=== PATIENT | male | born 1960 ===

== ENCOUNTER → 2023-07-05 15:55 | Outpatient (CLI) | payer OTHER, SELFPAY ==
--- NOTE | 2023-07-05 | DI.MRI.S_ITS ---
PROCEDURE: MRFOOT LT WO CON INDICATIONS: LEFT FOOT PAIN, PREVIOUS INJURY TECHNIQUE: Noncontrast sagittal T1 spin echo and T2 fast spin echo with fat saturation, long-axis T1 spin echo and T2 fast spin echo with fat saturation, short-axis T1 spin echo and T2 fast spin echo with fat saturation through the forefoot. COMPARISON: None. FINDINGS: Image quality: Excellent. Bones and joints: There is marrow edema involving 3rd and 4th metatarsal shafts with linear hypointense signal involving 4th metatarsal base concerning for stress fractures in these areas. No other fracture or dislocation is seen. Osteoarthritic changes are noted throughout midfoot and forefoot joints. Soft tissues: There is soft tissue edema and swelling surrounding proximal shaft of 3rd metatarsal bone and surrounding 4th metatarsal base. The visualized plantar foot muscles demonstrate normal signal and bulk. Visualized flexor and extensor tendons appear intact, without tenosynovitis. The distal insertions of the peroneus brevis and longus tendons appear intact. The principal Lisfranc ligament appears intact. No soft tissue ganglion cysts or bursal fluid collections. IMPRESSION: 1. Finding is concerning for stress fracture involving 4th and possibly 3rd metatarsal base and proximal shaft with surrounding soft tissue edema and marrow edema. 2. No other fracture or dislocation. Osteoarthritic changes throughout midfoot and forefoot. 3. Extensor and flexor tendons are grossly intact. Lisfranc ligament is intact. Dictated by: Gumaro Coles M.D. on 07/05/2023 at 17:14 Approved by: Gumaro Coles M.D. on 07/05/2023 at 17:18
== END ==
PROVIDERS: Referring Provider Podiatrist; Visit Provider Podiatrist
DX: S90.32XA Contusion of left foot, initial encounter (principal); M79.672 Pain in left foot
CPT/HCPCS: 73718

== ENCOUNTER 2024-03-31 09:19 | Emergency (ER) | payer OTHER, SELFPAY ==
[2024-03-31] VITALS (8 sets, daily range): BP systolic 153–180; BP diastolic 72–86; PULSE 46–56; RESP 14–18; TEMP 36.7; O2SAT 96–100; BMI 41.2
--- NOTE | 2024-03-31 10:22 | ED.BACK ---
HPI - Back Pain/Injury General Chief Complaint: Back Pain/Injury Stated Complaint: Back Pain Time Seen by Provider: 03/31/24 09:30 Source: patient and EMS History of Present Illness HPI Narrative: Patient 64-year-old male history of hyperlipidemia acid reflux chronic back pain presenting today with left lower lumbar pain. He reports that he had increased FLAIR 2 days ago took some Tylenol stretch it out got better yesterday he was able to get up and go to work. However this morning in the chair he was unable to move he took Tylenol prior to arrival and now seems to be a bit better. He has no numbness or tingling down his legs no radiation to his groin. No abdominal pain no nausea or vomiting. This feels like an exacerbation of his chronic back pain. He has no history of kidney stones he has not noted any sort of blood in his urine, not had any fever Related Data Previous Rx's Medication Instructions Recorded methocarbamol 750 mg tablet 750 mg PO Q12HR PRN spasm #14 tabs 03/31/24 Allergies Allergy/AdvReac Type Severity Reaction Status Date / Time No Known Drug Allergies Allergy Verified 03/31/24 09:25 Patient History Social History Smoking Status: Never smoker Smoking Status: Never smoker alcohol intake frequency: 0-2 drinks per day Substance Use Type: does not use Exam Initial Vital Signs Initial Vital Signs: Vital Signs Pulse Rate 56 L 03/31/24 09:19 Blood Pressure 180/79 H 03/31/24 09:19 Pulse Oximetry 99 03/31/24 09:19 GENERAL: Alert 64-year-old male and in no acute distress. HEENT: Head atraumatic,EOMI, pupils reactive, face symmetric, moist mucous membranes CARDIOVASCULAR: Regular rate and rhythm without murmurs, rubs or gallops. RESPIRATORY: Breath sounds equal bilaterally, no wheezes rales or rhonchi. ABDOMEN: Soft, nontender. Normoactive bowel sounds all 4 quadrants. No guarding or rebound. BACK: No midline vertebral tenderness he does have some left paraspinal muscle tenderness reproducible with touch : No CVA tenderness EXTREMITIES: Normal range of motion, no clubbing or edema. Neurovascularly intact NEUROLOGICAL: Alert and oriented x4. SKIN: Warm, dry, no laceration, no petechiae, no rashes or lesions. Course Orders Ordered: Discontinued Medications Ketorolac Tromethamine (Ketorolac 30 Mg/Ml Vial) 30 mg IM NOW ONE Stop: 03/31/24 10:35 Last Admin: 03/31/24 10:42 Dose: 30 mg Documented By: PARVIN Vital Signs Vital signs: Vital Signs - 8 hr 03/31/24 10:30 03/31/24 10:30 03/31/24 11:03 Pulse Rate 48 L 53 L Blood Pressure 172/86 H Pulse Oximetry 97 98 03/31/24 11:04 03/31/24 11:04 Pulse Rate 53 L Blood Pressure 167/74 H Pulse Oximetry 100 MDM - Back Pain/Injury Lab Data Labs: Urine Dip Bedside Urine Glucose Negative Bedside Urine Bilirubin - Negative Bedside Urine Ketone - Negative Urine Specific [place] 1.020 Bedside Urine Occult Blood - Negative Bedside Urine pH 6.5 Bedside Urine Protein - Negative Bedside Urine Urobilinogen - Negative Bedside Urine Nitrite - Negative Bedside Urine Leukocytes - Negative Esterase MDM Narrative Medical decision making narrative: Patient is 64-year-old male who has chronic back pain presents today with worsening back pain. He had an exacerbation of pain 2 days ago was better yesterday and today could not get out of the chair. It is left lower lumbar area painful to touch and reproducible. He is starting to feel better after Tylenol that he took prior to EMS . I suspect that this is musculoskeletal. I have low suspicion for dissection or kidney stone. He has given a dose of Toradol here in the ED he is able to get up and go to restroom without any significant difficulty. He is anything significantly stronger for pain but is open to a muscle relaxer. Discharge Plan Departure Patient Disposition: Home Clinical Impression: Acute exacerbation of chronic low back pain Instructions: DI for Low Back Pain Activity Restrictions/Additional Instructions: *You have been diagnosed with acute on chronic back pain *What to do: Increase activity as tolerated heat and ice as needed *Continue to take medications as directed Tylenol 1000 mg every 6 hours if needed for [id number] pain Motrin 600 mg every 6 hours for kejs-[id number] pain Methocarbamol 750-1500 mg every 12 hours for muscle spasm his can cause drowsiness not take while driving or operating heavy machinery *Follow up with your primary care provider in 2-3 days or call [phone] *Return to ER if you should have increasing back pain nausea vomiting weakness change in bowel or bladder habits [or] any new, worsening or concerning symptoms Prescriptions: New methocarbamol 750 mg tablet 750 mg PO Q12HR PRN (Reason: spasm) Qty: 14 0RF Referrals: ProviderMaggie [Primary Care Provider] - Stand Alone Forms: Patient Portal/API
[2024-03-31] MEDS: KETOROLAC 30 MG/ML VIAL IM (10:42)
== END 2024-03-31 11:25 | disposition home or self-care (01) ==
PROVIDERS: Emergency Provider Emergency Medicine
DX: M54.50 Low back pain, unspecified (principal)
CPT/HCPCS: 81003; 96372; 99283; J1885

== ENCOUNTER 2024-08-07 00:40 | Emergency (ER) | payer OTHER, SELFPAY ==
[2024-08-07] VITALS (7 sets, daily range): BP systolic 139–142; BP diastolic 67–80; PULSE 60–91; RESP 18–20; TEMP 37.2; O2SAT 94–97; BMI 40.8
--- NOTE | 2024-08-07 00:52 | ED.GENADULT ---
HPI - General Adult General Chief complaint: Abdominal Pain Stated complaint: blockage Time Seen by Provider: 08/07/24 00:42 Source: patient Mode of arrival: Ambulatory Limitations: no limitations History of Present Illness HPI narrative: Patient is a 64-year-old male. Has had a appendectomy. Has also had a bowel obstruction. This was actually several years ago. He states yesterday he started to have some discomfort in his abdomen that felt like he was prior bowel obstruction. It has persisted and worsened since then. No vomiting. He has had loose stools today. No problems urinating. The last time that he had a bowel obstruction it did not require surgical intervention. Related Data Previous Rx's Medication Instructions Recorded methocarbamol 750 mg tablet 750 mg PO Q12HR PRN spasm #14 tabs 03/31/24 Allergies Allergy/AdvReac Type Severity Reaction Status Date / Time No Known Drug Allergies Allergy Verified 03/31/24 09:25 Review of Systems Review of Systems Narrative: See HPI Patient History Social History Smoking Status: Never smoker Smoking Status: Never smoker alcohol intake frequency: 0-2 drinks per day Substance Use Type: does not use Exam Initial Vital Signs Initial Vital Signs: Vital Signs Temperature 99.0 F 08/07/24 00:50 Pulse Rate 91 H 08/07/24 00:50 Respiratory Rate 20 08/07/24 00:50 Blood Pressure 142/77 H 08/07/24 00:50 Pulse Oximetry 95 08/07/24 00:50 Oxygen Delivery Method Room Air 08/07/24 00:50 Const General: cooperative, comfortable and No ill appearing Resp Effort & Inspection: normal respiratory effort Cardio Rate: regular rate GI Inspection: normal to inspection and distended Palpation: soft, No firm, No guarding and No tender Skin General: no rashes or lesions noted Neuro General: patient alert, patient awake and moves all extremities Extrem General: normal to inspection and capillary refill normal Course Orders Ordered: ED Orders 08/07/24 00:50 Complete Blood Count AUTO DIFF Stat Comprehensive Metabolic Panel Stat Lactate (Lactic Acid) Stat Lipase Stat 08/07/24 00:53 CT abdomen pelvis w con Stat Vital Signs Vital signs: Vital Signs - 8 hr 08/07/24 00:50 08/07/24 00:59 08/07/24 00:59 Temperature 99.0 F Pulse Rate 91 H 86 Respiratory Rate 20 Blood Pressure 142/77 H 139/73 Pulse Oximetry 95 94 Oxygen Delivery Method Room Air 08/07/24 01:00 08/07/24 01:01 08/07/24 01:01 Temperature Pulse Rate 90 87 Respiratory Rate 19 Blood Pressure 139/80 Pulse Oximetry 94 94 Oxygen Delivery Method Room Air Room Air Medical Decision Making Lab Data Lab results reviewed: Yes I reviewed the patient's lab results. 08/07/24 00:50 08/07/24 00:50 Labs: Lab Results 08/07/24 Range/Units 00:50 WBC 9.6 (4.5-11.0) X10^3/uL RBC 5.04 (4.5-5.9) X10^6/uL Hgb 15.5 (13.5-17.5) g/dL Hct 45.0 (41-53) % MCV 89.3 (80-100) fL MCH 30.8 (26-34) PG MCHC 34.5 (30-36) % RDW 13.3 (11.6-14.8) % Plt Count 151 (150-400) X10^3/uL Neut % (Auto) 77.8 H (50-75) % Lymph % (Auto) 13.8 L (25-40) % [place] % (Auto) 7.5 (3-14) % Eos % (Auto) 0.6 L (2-4) % Baso % (Auto) 0.3 (0-2) % Neut # (Auto) 7400 H (4650-6447) /uL Lymph # (Auto) 1300 (7123-7614) /uL [place] # (Auto) 700 (0-900) /uL Eos # (Auto) 100 (0-450) /uL Baso # (Auto) 0 (0-100) /uL Sodium 136 L (137-145) mmol/L Potassium 3.6 (3.4-5.1) mmol/L Chloride 108 H (98-107) mmol/L Carbon Dioxide 21 L (22-32) mmol/L BUN 12 (9-20) mg/dL Creatinine 0.76 (0.66-1.25) mg/dL Estimated GFR > 60 (>60) mL/min BUN/Creatinine Ratio 15.8 (6-22) Glucose 111 H (80-110) mg/dL Lactate 0.7 (0.7-2.1) mmol/L Calcium 9.0 (8.4-10.2) mg/dL Total Bilirubin 2.0 H (0.2-1.3) mg/dL AST 28 (17-59) IU/L ALT 27 (<50) IU/L Alkaline Phosphatase 84 (38-126) U/L Total Protein 6.9 (6.3-8.2) g/dL Albumin 3.9 (3.5-5.0) g/dL Globulin 3.0 (1.7-4.1) g/dL Albumin/Globulin Ratio 1.3 (1.0-2.8) Lipase 25 (23-300) U/L Imaging Data CT scan - abdomen/pelvis: Radiologist's Impression: PROCEDURE: CT ABDOMEN PELVIS W CON INDICATIONS: Upper abdominal pain, history of SBO and appendectomy TECHNIQUE: After the administration of intravenous contrast, axial sections acquired from the lung bases to the pubic symphysis. Coronal and sagittal reformats were performed. For radiation dose reduction, the following was used: automated exposure control, adjustment of mA and/or kV according to patient size. COMPARISON: None. FINDINGS: Image quality: Diagnostic. Lower Chest: No significant findings. ABDOMEN: Liver: No solid mass. Gallbladder: No radiopaque gallstones or wall thickening. Biliary ducts: No biliary dilation. Pancreas: No ductal dilation. Spleen: Size is within normal limits. Adrenal Glands: No adrenal nodules. Kidneys and Ureters: No hydronephrosis. No solid mass. No complex renal cystic lesion which requires follow up. Simple appearing renal cysts. Stomach and Bowel: Normal colonic caliber, without significant wall thickening. Few dilated loops of small bowel the mid abdomen with air-fluid levels measuring up to 4.1 cm. No transition point is seen. The small bowel transitions to normal caliber. There is significant long segment wall thickening of the mid abdominal small bowel. Peritoneum: Small volume free intraperitoneal fluid. No free air. Ventral Wall: No significant ventral hernia. Abdominal Nodes: No retroperitoneal or mesenteric adenopathy by size criteria. Vessels: Aorta and inferior vena cava are normal in size. PELVIS: Pelvic Organs: Unremarkable. Bladder: No bladder wall thickening, accounting for underdistention. Pelvic Nodes: No enlarged lymph nodes. Miscellaneous: No inguinal hernias are seen. Bones: No aggressive osseous abnormality. Multilevel degenerative changes of the spine. IMPRESSION: Few dilated loops of small bowel within the mid abdomen with air-fluid levels measuring up to 4.1 cm. No transition point is seen and just distal to the dilated small bowel is a long segment of significant small bowel wall thickening. Findings are concerning for enteritis. Developing bowel obstruction is felt to be less likely. Small volume free fluid is likely reactive. MDM Narrative Medical decision making narrative: Patient does have a relatively benign abdominal exam. Vital signs are unremarkable labs are relatively unremarkable as well. CT scan was ordered given his stated history of a small-bowel obstruction and him stating this feels similar to that. Subsequent CT scan does not show signs of a bowel obstruction. More consistent with enteritis and this does fit his presentation as he states he was had multiple episodes of diarrhea today. No recent antibiotics. His tolerating oral intake. We will hold on any antibiotics for now. No indication for admission to the hospital or emergent surgical consultation. Will discharge home with return precautions and follow-up instructions. He expressed understanding and agreement. Discharge Plan Departure Patient Disposition: Home Clinical Impression: Enteritis Instructions: Diarrhea, DI for Enteritis Activity Restrictions/Additional Instructions: Continue to take all of your medications as directed. Be sure that you were increasing your fluid intake. Recommend a bland diet for the next couple days that you can advance as tolerated. Return to the emergency department for new or worsening symptoms. Prescriptions: No Action methocarbamol 750 mg tablet 750 mg PO Q12HR PRN (Reason: spasm) Qty: 14 0RF Referrals: ProviderMaggie [Primary Care Provider] - Stand Alone Forms: Patient Portal/API
[2024-08-07 01:03] LABS: Add Manual Diff / Slide Review NO; Basophils Absolute Auto 0 /uL (0-100); Basophils Percent Auto 0.3 % (0-2); Eosinophils Absolute Auto 100 /uL (0-450); Eosinophils Percent Auto 0.6 % (2-4); Hemoglobin 15.5 g/dL (13.5-17.5); Lymphocytes Absolute Auto 1300 /uL (1100-4500); Lymphocytes Percent Auto 13.8 % (25-40); Mean Corpuscular HGB Conc 34.5 % (30-36); Mean Corpuscular Hemoglobin 30.8 PG (26-34); Mean Corpuscular Volume 89.3 fL (80-100); Monocytes Absolute Auto 700 /uL (0-900); Monocytes Percent Auto 7.5 % (3-14); Neutrophils Absolute Auto 7400 /uL (1500-7000); Neutrophils Percent Auto 77.8 % (50-75); Platelet Count 151 X10^3/uL (150-400); Red Blood Cell Count 5.04 X10^6/uL (4.5-5.9); Red Cell Distribution Width 13.3 % (11.6-14.8); White Blood Cell Count 9.6 X10^3/uL (4.5-11.0)
[2024-08-07 01:14] LABS: Lactate (Lactic Acid) 0.7 mmol/L (0.7-2.1); Lipase 25 U/L (23-300)
[2024-08-07 01:15] LABS: Alanine Aminotransferase 27 IU/L (<50); Albumin 3.9 g/dL (3.5-5.0); Albumin Globulin Ratio 1.3 (1.0-2.8); Alkaline Phosphatase 84 U/L (38-126); Aspartate Aminotransferase 28 IU/L (17-59); BUN Creatinine Ratio 15.8 (6-22); Blood Urea Nitrogen 12 mg/dL (9-20); Carbon Dioxide 21 mmol/L (22-32); Chloride 108 mmol/L (98-107); Estimated Glomerular Filt Rate > 60 mL/min (>60); Glucose 111 mg/dL (80-110); HEMOLYSIS < 15 (0-50); Potassium 3.6 mmol/L (3.4-5.1); Sodium 136 mmol/L (137-145); Total Protein 6.9 g/dL (6.3-8.2)
== END 2024-08-07 02:08 | disposition home or self-care (01) ==
PROVIDERS: Emergency Provider Emergency Medicine
DX: K52.9 Noninfective gastroenteritis and colitis, unspecified (principal); Z90.49 Acquired absence of other specified parts of digestive tract
CPT/HCPCS: 36415; 74177; 80053; 83605; 83690; 85025; 99283; 99284; Q9967

== ENCOUNTER 2024-08-09 10:09 | Inpatient (IN) | payer OTHER, SELFPAY ==
[2024-08-09] VITALS (12 sets, daily range): BP systolic 129–157; BP diastolic 61–93; PULSE 57–89; RESP 15–24; TEMP 36.4–36.8; O2SAT 95–99; BMI 40.7; BMI 39.1
--- NOTE | 2024-08-09 10:16 | DI.RAD.S_ITS ---
PROCEDURE: XR ACUTE ABDOMEN SERIES INDICATIONS: abd pain,constipation TECHNIQUE: One view chest and two views of the abdomen were acquired. COMPARISON: [facility], CT, CT ABDOMEN PELVIS W CON, 08/07/2024, 1:23. FINDINGS: Persistently dilated small bowel with air-fluid levels up to 4.5 cm in the central mid abdomen. Submucosal edema of the dilated small bowel loops. Large bowel loops are decompressed. Partial ankylosis of the sacroiliac joints. Visualized chest within normal limits. IMPRESSION: Persistent small bowel obstruction. Consider the possibility of underlying inflammatory disease such as Crohn's disease. Dictated by: Fer Desai M.D. on 08/09/2024 at 10:43 Approved by: Fer Desai M.D. on 08/09/2024 at 10:53
--- NOTE | 2024-08-09 10:21 | ED.ABDPAIN ---
HPI - Abdominal Pain General Chief Complaint: Abdominal Pain Stated Complaint: constipated Time Seen by Provider: 08/09/24 10:21 Source: patient Mode of arrival: Ambulatory History of Present Illness HPI narrative: 64-year-old male with history of remote appendectomy, subsequent single episode bowel obstruction treated medically, with recent days complaint of abdominal distention and discomfort, seen here 2 days ago 08/07/2024 and recalls having a CT scan, does not know the results but he was sent home, no specific medication advised, still feels like he is having discomfort, not necessarily further distended, he is passing some liquid stool, last liquid stool 8:00 a.m. this morning, did not feel better or worse after the stooling. No nausea or vomiting. No fevers or chills. Denies painful urination or frequency of urination. No flank pain. No chest pain or shortness of breath symptoms. Related Data Home Medications Medication Instructions Recorded Confirmed omeprazole 20 mg capsule,delayed 20 mg PO DAILY 08/09/24 08/09/24 release paroxetine HCl 20 mg tablet 20 mg PO DAILY 08/09/24 08/09/24 simvastatin 20 mg tablet 20 mg PO ONCE PM 08/09/24 08/09/24 Allergies Allergy/AdvReac Type Severity Reaction Status Date / Time No Known Drug Allergies Allergy Verified 08/09/24 10:17 Review of Systems Review of Systems Narrative: See HPI Patient History Social History household members: spouse Smoking Status: Never smoker alcohol intake: current Smoking Status: Never smoker alcohol intake frequency: holidays/special occasions only Substance Use Type: does not use Exam Narrative Exam Narrative: GENERAL: Well-developed patient, in mild distress. HEAD: Atraumatic. Normocephalic. EYES: Pupils equal round and reactive. Extraocular motions intact. No scleral icterus. No injection or drainage. ENT: Nose without bleeding, purulent drainage. Throat without erythema, tonsillar hypertrophy or exudate. Airway patent. NECK: Trachea midline. Non tender CARDIOVASCULAR: Regular rate and rhythm without murmurs, gallops, or rubs. RESPIRATORY: Clear to auscultation. Breath sounds equal bilaterally. No wheezes, rales, or rhonchi. GASTROINTESTINAL: Obese pannus, abdomen soft, non-tender, nondistended. No obvious periumbilical or other ventral hernias. EXTREMITIES: No edema or joint tenderness. BACK: Nontender without deformity or crepitance. No flank tenderness. NEURO: AOx3. Motor functions grossly nonfocal SKIN: No rash or erythema of visible areas Initial Vital Signs Initial Vital Signs: Vital Signs Temperature 98.3 F 08/09/24 10:10 Pulse Rate 89 08/09/24 10:10 Respiratory Rate 15 08/09/24 10:10 Blood Pressure 137/75 08/09/24 10:10 Pulse Oximetry 97 08/09/24 10:10 Oxygen Delivery Method Room Air 08/09/24 10:10 Course Orders Ordered: ED Orders 08/09/24 12:10 Complete Blood Count AUTO DIFF Stat Comprehensive Metabolic Panel Stat 08/09/24 12:55 CT abdomen pelvis w con Stat 08/09/24 13:10 Ictotest Urine Stat Urine Culture Stat Urine Microscopic Stat Heparin Sodium (Porcine) (Heparin 5,000 Unit/Ml Vial) 5,000 unit SUBCUT BID [facility] Last Admin: 08/09/24 20:29 Dose: 5,000 unit Documented By: SR Hydromorphone HCl (Hydromorphone 0.5 Mg Inj) 0.5 mg IV Q2H PRN PRN Reason: Pain, Severe (7-10) Dextrose/Sodium Chloride (Dextrose 5%-0.9% Ns) 1,000 mls @ 100 mls/hr IV CONT [facility] Last Admin: 08/09/24 16:45 Dose: 100 mls/hr Documented By: JR Lorazepam (Lorazepam 2 Mg/Ml Inj) 0.5 mg IV Q6HR PRN PRN Reason: Anxiety Naloxone HCl (Naloxone 0.4 Mg/Ml Vial) 0.2 mg IV Q2MIN PRN PRN Reason: Opiate Reversal Ondansetron HCl (Ondansetron 4 Mg/2 Ml Inj) 4 mg IV Q8HR PRN PRN Reason: Nausea And Vomiting Vital Signs Vital signs: Vital Signs - 8 hr 08/09/24 13:21 08/09/24 13:21 08/09/24 13:30 Pulse Rate 60 Respiratory Rate 23 Blood Pressure 152/93 H 145/88 H Pulse Oximetry 99 08/09/24 13:30 08/09/24 14:00 08/09/24 14:00 Pulse Rate 68 67 Respiratory Rate 24 23 Blood Pressure 149/73 H Pulse Oximetry 98 97 08/09/24 14:30 08/09/24 14:30 08/09/24 15:00 Pulse Rate 66 Respiratory Rate 23 Blood Pressure 141/76 H 157/75 H Pulse Oximetry 98 08/09/24 15:00 Pulse Rate 62 Respiratory Rate 24 Blood Pressure Pulse Oximetry 98 MDM - Abdominal Pain Lab Data Attestation: I reviewed the patient's lab results. Lab results narrative: Normal white blood cell count, hemoglobin, platelets. CMP shows T bili 2.3, was elevated 2.0 2 days ago, other LFTs unremarkable, her electrolytes unremarkable, GFR normal, glucose normal. 08/09/24 12:10 08/09/24 12:10 Labs: Lab Results 08/09/24 08/09/24 Range/Units 12:10 13:10 WBC 9.0 (4.5-11.0) X10^3/uL RBC 5.01 (4.5-5.9) X10^6/uL Hgb 15.5 (13.5-17.5) g/dL Hct 44.4 (41-53) % MCV 88.6 (80-100) fL MCH 30.9 (26-34) PG MCHC 34.9 (30-36) % RDW 12.9 (11.6-14.8) % Plt Count 179 (150-400) X10^3/uL Neut % (Auto) 73.9 (50-75) % Lymph % (Auto) 17.7 L (25-40) % [place] % (Auto) 7.7 (3-14) % Eos % (Auto) 0.4 L (2-4) % Baso % (Auto) 0.3 (0-2) % Neut # (Auto) 6600 (0900-0807) /uL Lymph # (Auto) 1600 (8343-6594) /uL [place] # (Auto) 700 (0-900) /uL Eos # (Auto) 0 (0-450) /uL Baso # (Auto) 0 (0-100) /uL Sodium 139 (137-145) mmol/L Potassium 3.8 (3.4-5.1) mmol/L Chloride 107 (98-107) mmol/L Carbon Dioxide 24 (22-32) mmol/L BUN 15 (9-20) mg/dL Creatinine 0.85 (0.66-1.25) mg/dL Estimated GFR > 60 (>60) mL/min BUN/Creatinine Ratio 17.6 (6-22) Glucose 102 (80-110) mg/dL Calcium 9.1 (8.4-10.2) mg/dL Total Bilirubin 2.3 H (0.2-1.3) mg/dL AST 22 (17-59) IU/L ALT 21 (<50) IU/L Alkaline Phosphatase 74 (38-126) U/L Total Protein 7.0 (6.3-8.2) g/dL Albumin 4.1 (3.5-5.0) g/dL Globulin 2.9 (1.7-4.1) g/dL Albumin/Globulin Ratio 1.4 (1.0-2.8) Ur Bilirubin Confirm Positive H (Negative) Urine RBC None seen (0-5/HPF) Urine WBC 0-1/hpf (0-5/HPF) Ur Squamous Epith Cells None seen (0-5/HPF) Urine Bacteria Occasional (0-1) (None) Urine Mucus 1+ H (Negative) Ur Culture Indicated? Specimen cultured Vol Urine Centrifuged 10ml (spun) Point of care testing: Urine Dip Bedside Urine Glucose Negative Bedside Urine Bilirubin + 1 Bedside Urine Ketone +/- 5 Urine Specific [place] 1.025 Bedside Urine Occult Blood - Negative Bedside Urine pH 6.0 Bedside Urine Protein + 30 Bedside Urine Urobilinogen - Negative Bedside Urine Nitrite - Negative Bedside Urine Leukocytes +/- 15 Esterase Imaging Data Abdominal x-ray: Radiologist's Impression: [address] [address] XRay Report Signed Patient: Carlos Burk MR#: [id number] : 1960 Acct:[id number] Age/Sex: 64 / M Date of Service: 08/09/24 Loc: ED Accession Number: [id number] Procedure: XR acute abdomen series Ordering Provider: Alonzo Arroyo MD PROCEDURE: XR ACUTE ABDOMEN SERIES INDICATIONS: abd pain,constipation TECHNIQUE: One view chest and two views of the abdomen were acquired. COMPARISON: [facility], CT, CT ABDOMEN PELVIS W CON, 08/07/2024, 1:23. FINDINGS: Persistently dilated small bowel with air-fluid levels up to 4.5 cm in the central mid abdomen. Submucosal edema of the dilated small bowel loops. Large bowel loops are decompressed. Partial ankylosis of the sacroiliac joints. Visualized chest within normal limits. IMPRESSION: Persistent small bowel obstruction. Consider the possibility of underlying inflammatory disease such as Crohn's disease. Dictated by: Fer Desai M.D. on 08/09/2024 at 10:43 Approved by: Fer Desai M.D. on 08/09/2024 at 10:53 CT scan - abdomen/pelvis: Radiologist's Impression: [place] [address] CT Scan Report Signed Patient: Carlos Burk MR#: [id number] : 1960 Acct:[id number] Age/Sex: 64 / M Date of Service: 08/09/24 Loc: ED Accession Number: [id number] Procedure: CT abdomen pelvis w con Ordering Provider: Alonzo Arroyo MD PROCEDURE: CT ABDOMEN PELVIS W CON INDICATIONS: abd pain, XR possible SBO, no obst 08/07 CT TECHNIQUE: After the administration of intravenous contrast, axial sections acquired from the lung bases to the pubic symphysis. Coronal and sagittal reformats were performed. For radiation dose reduction, the following was used: automated exposure control, adjustment of mA and/or kV according to patient size. COMPARISON: [facility], CT, CT ABDOMEN PELVIS W CON, 08/07/2024, 1:23. FINDINGS: Image quality: Diagnostic. Peritoneum: No pneumoperitoneum or ascites. Bones: No acute osseous abnormality. Ankylosis of the sacroiliac joints (). Diffuse idiopathic skeletal hyperostosis of the visualized thoracic and lumbar spine. Hypertrophy of the spinous processes. Lower Chest: No acute abnormality. Liver: Normal in size and contour. Gallbladder: No stones or pericholecystic fluid. Biliary tree: No intrahepatic or extrahepatic biliary ductal dilatation. Pancreas: Within normal limits. Spleen: Normal in size and contour. Kidneys: No hydronephrosis or obstructive urolithiasis. Re-identified bilateral simple cysts. Adrenals: No adrenal nodularity. Bladder: Normal in size and wall thickness. : No acute abnormality. Stomach: Normal in size and contour. Bowel: Fluid-filled dilatation of small bowel involving the proximal-mid jejunum and proximal-mid ileum with a transition point in the central lower abdomen followed by decompressed ileum progressing to the ileocecal valve (3/35). The small bowel is dilated up to a maximum of 4.6 cm in the central upper abdomen (2/55). Nonvisualization of the appendix without secondary signs of acute appendicitis. Decompressed colon with a small amount of fluid, which can be seen in the setting of diarrhea. Lymph Nodes: No retroperitoneal, mesenteric, or inguinal lymphadenopathy. Vascular: No abdominal aortic aneurysm. The visualized arterial vasculature is patent. Soft Tissues: No acute abnormality. IMPRESSION: Small bowel obstruction with a least 1 transitional point in the central lower abdomen. In the setting of sacroiliac joint ankylosis, consider the possibility of underlying inflammatory bowel disease. Dictated by: Fer Desai M.D. on 08/09/2024 at 14:15 Approved by: Fer Desai M.D. on 08/09/2024 at 14:27 MDM Narrative Medical decision making narrative: 64-year-old male with history of remote appendectomy, prior bowel obstruction treated medically, no other abdominopelvic surgical interventions besides appendectomy, seen here 2 days ago with abdominal pain, CT scan at that time showed nonsurgical problem, patient does not recall specific diagnosis but was discharged home. Complains of abdominal pain ongoing, did have clear liquid stool this morning 8:00 a.m., passing gas as well. No nausea or vomiting. Afebrile, sirs screen negative, abdominal pannus noted, not particularly distended, non tympanitic, no obvious fluid wave, no guarding or rebound tenderness. Nursing triage concern for constipation had ordered abdominal x-ray series at triage. Abdominal x-ray series from triage today showed ?persistent small bowel obstruction, see radiology report. We will obtain records 08/07/2024 study. Labs sent for now, likely will need repeat CT abdomen and pelvis imaging for comparison. Records review ED visit here 08/07/2024. Patient abdominal discomfort, prior appy, prior bowel obstruction treated medically, screening labs unremarkable, CT abdomen and pelvis from that visit showed enteritis changes. White blood cell count normal, hemoglobin normal, renal function adequate. CT abdomen and pelvis with IV contrast ordered. CT abdomen and pelvis today. Impression: ?Small bowel obstruction with a least one transitional point in the central lower abdomen.. See radiology report Case discussed with surgery Dr. Segundo, no nausea or vomiting, can hold off on NG tube, he will consult, admit to hospitalist service, initial medical management trial. 1500, case discussed with hospitalist Dr. Cunningham, who accepts patient for admission to observation Discharge Plan Departure Patient Disposition: Admitted as Observation Clinical Impression: Small bowel obstruction Admit Date/Time: 08/09/24 15:02 Admit Provider: Errol Cunningham
[2024-08-09 12:19] LABS: Add Manual Diff / Slide Review NO; Basophils Absolute Auto 0 /uL (0-100); Basophils Percent Auto 0.3 % (0-2); Eosinophils Absolute Auto 0 /uL (0-450); Eosinophils Percent Auto 0.4 % (2-4); Hematocrit 44.4 % (41-53); Hemoglobin 15.5 g/dL (13.5-17.5); Lymphocytes Absolute Auto 1600 /uL (1100-4500); Lymphocytes Percent Auto 17.7 % (25-40); Mean Corpuscular HGB Conc 34.9 % (30-36); Mean Corpuscular Hemoglobin 30.9 PG (26-34); Mean Corpuscular Volume 88.6 fL (80-100); Monocytes Absolute Auto 700 /uL (0-900); Monocytes Percent Auto 7.7 % (3-14); Neutrophils Absolute Auto 6600 /uL (1500-7000); Neutrophils Percent Auto 73.9 % (50-75); Platelet Count 179 X10^3/uL (150-400); Red Blood Cell Count 5.01 X10^6/uL (4.5-5.9); Red Cell Distribution Width 12.9 % (11.6-14.8)
[2024-08-09 12:35] LABS: Alanine Aminotransferase 21 IU/L (<50); Albumin 4.1 g/dL (3.5-5.0); Albumin Globulin Ratio 1.4 (1.0-2.8); Alkaline Phosphatase 74 U/L (38-126); Aspartate Aminotransferase 22 IU/L (17-59); BUN Creatinine Ratio 17.6 (6-22); Bilirubin Total 2.3 mg/dL (0.2-1.3); Blood Urea Nitrogen 15 mg/dL (9-20); Calcium 9.1 mg/dL (8.4-10.2); Carbon Dioxide 24 mmol/L (22-32); Chloride 107 mmol/L (98-107); Estimated Glomerular Filt Rate > 60 mL/min (>60); Globulin 2.9 g/dL (1.7-4.1); Glucose 102 mg/dL (80-110); HEMOLYSIS < 15 (0-50); Potassium 3.8 mmol/L (3.4-5.1); Sodium 139 mmol/L (137-145)
--- NOTE | 2024-08-09 12:55 | DI.CT.S_ITS ---
PROCEDURE: CT ABDOMEN PELVIS W CON INDICATIONS: abd pain, XR possible SBO, no obst 08/07 CT TECHNIQUE: After the administration of intravenous contrast, axial sections acquired from the lung bases to the pubic symphysis. Coronal and sagittal reformats were performed. For radiation dose reduction, the following was used: automated exposure control, adjustment of mA and/or kV according to patient size. COMPARISON: [facility], CT, CT ABDOMEN PELVIS W CON, 08/07/2024, 1:23. FINDINGS: Image quality: Diagnostic. Peritoneum: No pneumoperitoneum or ascites. Bones: No acute osseous abnormality. Ankylosis of the sacroiliac joints (). Diffuse idiopathic skeletal hyperostosis of the visualized thoracic and lumbar spine. Hypertrophy of the spinous processes. Lower Chest: No acute abnormality. Liver: Normal in size and contour. Gallbladder: No stones or pericholecystic fluid. Biliary tree: No intrahepatic or extrahepatic biliary ductal dilatation. Pancreas: Within normal limits. Spleen: Normal in size and contour. Kidneys: No hydronephrosis or obstructive urolithiasis. Re-identified bilateral simple cysts. Adrenals: No adrenal nodularity. Bladder: Normal in size and wall thickness. : No acute abnormality. Stomach: Normal in size and contour. Bowel: Fluid-filled dilatation of small bowel involving the proximal-mid jejunum and proximal-mid ileum with a transition point in the central lower abdomen followed by decompressed ileum progressing to the ileocecal valve (3/35). The small bowel is dilated up to a maximum of 4.6 cm in the central upper abdomen (2/55). Nonvisualization of the appendix without secondary signs of acute appendicitis. Decompressed colon with a small amount of fluid, which can be seen in the setting of diarrhea. Lymph Nodes: No retroperitoneal, mesenteric, or inguinal lymphadenopathy. Vascular: No abdominal aortic aneurysm. The visualized arterial vasculature is patent. Soft Tissues: No acute abnormality. IMPRESSION: Small bowel obstruction with a least 1 transitional point in the central lower abdomen. In the setting of sacroiliac joint ankylosis, consider the possibility of underlying inflammatory bowel disease. Dictated by: Fer Desai M.D. on 08/09/2024 at 14:15 Approved by: Fer Desai M.D. on 08/09/2024 at 14:27
[2024-08-09 13:39] LABS: Ictotest Urine Positive (Negative); Urine Volume 10mL (spun)
[2024-08-09 13:47] LABS: Bacteria Urine Occasional (0-1); Culture Indicated Urine Specimen Cultured; RBC Urine None Seen (0-5/HPF); Squamous Epithelial Cell Urine None Seen (0-5/HPF); WBC Urine 0-1/HPF (0-5/HPF)
[2024-08-09 13:56] LABS: Mucus Urine 1+ (Negative)
--- NOTE | 2024-08-09 15:59 | PM.HP.1 ---
History of Present Illness History of Present Illness Date Patient Seen: 08/09/24 Chief complaint: constipated Narrative: The patient is a 64-year-old who presents with abdominal pain. He has a history of appendectomy and 1 episode of previous bowel obstruction. Now presents with distention and discomfort. He was seen in the ED on August 07 and sent home. He now Re presents with ongoing pain. He does have some passage of liquid stool. He denies any nausea, vomiting, or belching. A repeat CT in the ED is consistent with a bowel obstruction. He denies fevers, chills, or blood per rectum. ED course: Discussed with surgery, they recommended medical management. NPO status and IV fluids as well as analgesics. CT scan was consistent with bowel obstruction. He was not been able to eat for about 2 days now. He was had some hiccups and some intermittent vomiting. He denies any blood per rectum or hematemesis. He had a very small bowel movement this morning and has passed gas only once. The pain is primarily epigastric and mostly constant. The pain gets worse with standing and is alleviated with lying flat. [facility] Social History Smoking Status: Never smoker Meds Home Medications and Allergies Home Medications Medication Instructions Recorded Confirmed Type omeprazole 20 mg capsule,delayed 20 mg PO DAILY 08/09/24 08/09/24 History release paroxetine HCl 20 mg tablet 20 mg PO DAILY 08/09/24 08/09/24 History simvastatin 20 mg tablet 20 mg PO ONCE PM 08/09/24 08/09/24 History Allergies Allergy/AdvReac Type Severity Reaction Status Date / Time No Known Drug Allergies Allergy Verified 08/09/24 10:17 Review of Systems Review of Systems Narrative: All else reviewed and otherwise unremarkable except as noted in the history and physical. Exam Vital Signs (past 8 hours): - 08/09/24 10:10 08/09/24 10:13 08/09/24 10:13 Temperature 98.3 F Pulse Rate 89 85 Respiratory Rate 15 Blood Pressure 137/75 135/75 Pulse Oximetry 97 97 Oxygen Delivery Method Room Air 08/09/24 12:40 08/09/24 12:41 08/09/24 12:41 Temperature Pulse Rate 61 67 Respiratory Rate 22 Blood Pressure 147/77 H Pulse Oximetry 97 98 Oxygen Delivery Method Room Air 08/09/24 13:21 08/09/24 13:21 08/09/24 13:30 Temperature Pulse Rate 60 Respiratory Rate 23 Blood Pressure 152/93 H 145/88 H Pulse Oximetry 99 Oxygen Delivery Method 08/09/24 13:30 08/09/24 14:00 08/09/24 14:00 Temperature Pulse Rate 68 67 Respiratory Rate 24 23 Blood Pressure 149/73 H Pulse Oximetry 98 97 Oxygen Delivery Method 08/09/24 14:30 08/09/24 14:30 08/09/24 15:00 Temperature Pulse Rate 66 Respiratory Rate 23 Blood Pressure 141/76 H 157/75 H Pulse Oximetry 98 Oxygen Delivery Method 08/09/24 15:00 08/09/24 15:30 08/09/24 15:30 Temperature Pulse Rate 62 69 Respiratory Rate 24 22 Blood Pressure 129/61 Pulse Oximetry 98 95 Oxygen Delivery Method Oxygen Delivery Method Room Air Narrative Exam Narrative: NAD, alert and oriented, fluent speech, calm. Normocephalic skull, EOMI, anicteric sclera, symmetric pupils. Oropharynx unremarkable, no droop. Neck supple, midline trachea, no adenopathy. Lungs clear, normal rate and effort. Heart regular, no murmur gallop or rub. Abdomen is soft, non distended and tender in the right upper quadrant without guarding or rebound. Extremities are free of edema. Skin is free of rash or lesions. Joints are not swollen or deformed. Judgment appears to be normal. Objective Imaging CT scan - abdomen: Radiologist's impression: Small bowel obstruction with a least 1 transitional point in the central lower abdomen. In the setting of sacroiliac joint ankylosis, consider the possibility of underlying inflammatory bowel disease. CT scan - chest: Radiologist's impression: Persistent small bowel obstruction. Consider the possibility of underlying inflammatory disease such as Crohn's disease. Labs 08/09/24 12:10 08/09/24 12:10 Labs: Laboratory Results - last 24 hr 08/09/24 08/09/24 12:10 13:10 WBC 9.0 RBC 5.01 Hgb 15.5 Hct 44.4 MCV 88.6 MCH 30.9 MCHC 34.9 RDW 12.9 Plt Count 179 Neut % (Auto) 73.9 Lymph % (Auto) 17.7 L [place] % (Auto) 7.7 Eos % (Auto) 0.4 L Baso % (Auto) 0.3 Neut # (Auto) 6600 Lymph # (Auto) 1600 [place] # (Auto) 700 Eos # (Auto) 0 Baso # (Auto) 0 Sodium 139 Potassium 3.8 Chloride 107 Carbon Dioxide 24 BUN 15 Creatinine 0.85 Estimated GFR > 60 BUN/Creatinine Ratio 17.6 Glucose 102 Calcium 9.1 Total Bilirubin 2.3 H AST 22 ALT 21 Alkaline Phosphatase 74 Total Protein 7.0 Albumin 4.1 Globulin 2.9 Albumin/Globulin Ratio 1.4 Ur Bilirubin Confirm Positive H Urine RBC None seen Urine WBC 0-1/hpf Ur Squamous Epith Cells None seen Urine Bacteria Occasional (0-1) Urine Mucus 1+ H Ur Culture Indicated? Specimen cultured Vol Urine Centrifuged 10ml (spun) Assessment & Plan Assessment & Plan narrative: 1. SBO, present on admission and active. 2. HLD, present on admission and stable. 3. Anxiety, present on admission and stable. 4. TAMEKA with home CPAP, present on admission and stable. Plan: -NPO, IV fluids, and analgesics. -NG tube decompression if he worsens. -general surgery is consulted and following. -Ativan q.6 as needed anxiety, IV. -hold oral medication -will sleep with head of bed up tonight and avoid CPAP as he was at a relatively high risk for regurgitation. Observation status, anticipate 1 midnight stay. Full resuscitation. DARLINE is 08/10. Time-Based Coding :: 35 min spent with patient and on the chart (including review of chart, obtaining history, exam, reviewing outside data, placing orders, documenting exam and treatment plan, and counseling patient) on 08/09. Quality MIPS - Admit I confirm the patient?s Advance Care Plan is present, Code status is documented, Surrogate decision maker is in patient?s record [If Yes, STOP here]: Yes MIPS - Meds 'Current medications' to include all prescriptions, [id number] products, herbals, cannabis/cannabidiol products, and vitamin/mineral/dietary (nutritional) supplements. I have utilized all available resources to obtain, update, or review the patient?s current medications. [If Yes, STOP here]: Yes
[2024-08-09] MEDS: DEXTROSE 5%-0.9% NS 1,000 ML 100 ML IV (16:45)
--- NOTE | 2024-08-09 16:59 | PC.NURSE ---
Patient admitted for sbo. He denies nausea, or pain at this time. His just left and his son plans on staying tonight. BT are hypoactive in all quadrants. Patient has D5NS infusing and he is tolerating this well.
--- NOTE | 2024-08-09 18:20 | DI.RAD.S_ITS ---
PROCEDURE: XR GASTROGRAFIN CHALLENGE COMPARISON: [facility], CR, XR ACUTE ABDOMEN SERIES, 08/09/2024, 10:22. INDICATIONS: sbo FINDINGS: Persistent dilated small bowel. Contrast is seen throughout the small bowel and colon. IMPRESSION: Persistent dilated loops of small bowel. Contrast is seen throughout the small bowel and colon. Dictated by: Garrett Bryan M.D. on 08/09/2024 at 22:59 Approved by: Garrett Bryan M.D. on 08/09/2024 at 23:00
[2024-08-09] MEDS: HEPARIN 5,000 UNIT/ML VIAL 5000 UNIT SUBCUT (20:29)
[2024-08-10] VITALS: BP 147/74; PULSE 55; RESP 18; TEMP 36.3; O2SAT 97
[2024-08-10 05:54] LABS: Add Manual Diff / Slide Review NO; Basophils Absolute Auto 0 /uL (0-100); Basophils Percent Auto 0.6 % (0-2); Eosinophils Absolute Auto 100 /uL (0-450); Hematocrit 41.4 % (41-53); Hemoglobin 14.2 g/dL (13.5-17.5); Lymphocytes Absolute Auto 1900 /uL (1100-4500); Lymphocytes Percent Auto 29.9 % (25-40); Mean Corpuscular HGB Conc 34.4 % (30-36); Mean Corpuscular Hemoglobin 30.5 PG (26-34); Mean Corpuscular Volume 88.8 fL (80-100); Monocytes Absolute Auto 600 /uL (0-900); Monocytes Percent Auto 9.1 % (3-14); Neutrophils Absolute Auto 3700 /uL (1500-7000); Neutrophils Percent Auto 58.4 % (50-75); Platelet Count 164 X10^3/uL (150-400); Red Blood Cell Count 4.66 X10^6/uL (4.5-5.9); Red Cell Distribution Width 12.9 % (11.6-14.8); White Blood Cell Count 6.3 X10^3/uL (4.5-11.0)
[2024-08-10 05:58] LABS: BUN Creatinine Ratio 20.7 (6-22); Blood Urea Nitrogen 17 mg/dL (9-20); Calcium 8.8 mg/dL (8.4-10.2); Carbon Dioxide 23 mmol/L (22-32); Chloride 110 mmol/L (98-107); Estimated Glomerular Filt Rate > 60 mL/min (>60); Glucose 119 mg/dL (80-110); HEMOLYSIS < 15 (0-50); Potassium 3.5 mmol/L (3.4-5.1); Sodium 140 mmol/L (137-145)
[2024-08-10 06:00] VITALS: BP 125/62; PULSE 52; RESP 20; TEMP 36.1; O2SAT 98
[2024-08-10 08:00] VITALS: BP 131/69; PULSE 51; RESP 21; TEMP 36.3; O2SAT 95
--- NOTE | 2024-08-10 08:05 | P.PN_ITS ---
Subjective Subjective Interval history: Summary: 64-year-old male with history of appendectomy in 1 distant bowel obstruction. He presents with abdominal pain and CT imaging evidence of bowel obstruction. S: He is feeling better overnight. Some right upper quadrant tenderness. No nausea, or vomiting. He was had minimal flatus but has had liquid stools Exam Vital Signs (past 8 hours): - 08/10/24 06:00 Temperature 97 F L Pulse Rate 52 L Respiratory Rate 20 Blood Pressure 125/62 Pulse Oximetry 98 Oxygen Flow Rate 0 Oxygen Delivery Method Room Air Oxygen Flow Rate 0 Narrative Exam Narrative: NAD, alert and oriented. Fluent speech. Lungs are clear, normal rate and effort. Heart is regular, no murmur gallop or rub. Abdomen is soft, non distended. There is minimal tenderness in the right upper quadrant. Extremities are free of edema. Objective Imaging CT scan - abdomen: Radiologist's impression: CT scan - abdomen: Radiologist's impression: Small bowel obstruction with a least 1 transitional point in the central lower abdomen. In the setting of sacroiliac joint ankylosis, consider the possibility of underlying inflammatory bowel disease. CT scan - chest: Radiologist's impression: Persistent small bowel obstruction. Consider the possibility of underlying inflammatory disease such as Crohn's disease. Labs 08/10/24 04:00 08/10/24 04:00 Labs: Laboratory Results - last 24 hr 08/09/24 08/09/24 08/10/24 12:10 13:10 04:00 WBC 9.0 6.3 RBC 5.01 4.66 Hgb 15.5 14.2 Hct 44.4 41.4 MCV 88.6 88.8 MCH 30.9 30.5 MCHC 34.9 34.4 RDW 12.9 12.9 Plt Count 179 164 Neut % (Auto) 73.9 58.4 Lymph % (Auto) 17.7 L 29.9 [place] % (Auto) 7.7 9.1 Eos % (Auto) 0.4 L 2.0 Baso % (Auto) 0.3 0.6 Neut # (Auto) 6600 3700 Lymph # (Auto) 1600 1900 [place] # (Auto) 700 600 Eos # (Auto) 0 100 Baso # (Auto) 0 0 Sodium 139 140 Potassium 3.8 3.5 Chloride 107 110 H Carbon Dioxide 24 23 BUN 15 17 Creatinine 0.85 0.82 Estimated GFR > 60 > 60 BUN/Creatinine Ratio 17.6 20.7 Glucose 102 119 H Calcium 9.1 8.8 Total Bilirubin 2.3 H AST 22 ALT 21 Alkaline Phosphatase 74 Total Protein 7.0 Albumin 4.1 Globulin 2.9 Albumin/Globulin Ratio 1.4 Ur Bilirubin Confirm Positive H Urine RBC None seen Urine WBC 0-1/hpf Ur Squamous Epith Cells None seen Urine Bacteria Occasional (0-1) Urine Mucus 1+ H Ur Culture Indicated? Specimen cultured Vol Urine Centrifuged 10ml (spun) [facility] Social History household members: spouse Smoking Status: Never smoker alcohol intake: current Assessment & Plan Assessment & Plan narrative: 1. SBO, present on admission and active. 2. HLD, present on admission and stable. 3. Anxiety, present on admission and stable. 4. TAMEKA with home CPAP, present on admission and stable. Plan: -improved, clear liquid trial. -KUB upright, and discuss with General surgery. Observation status, anticipate 1 midnight stay. Full resuscitation. DARLINE is 08/10. Time-Based Coding :: [TOTAL MINUTES] spent with patient and on the chart (including review of chart, obtaining history, exam, reviewing outside data, placing orders, documenting exam and treatment plan, and counseling patient) on [DATE]. Quality VTE Deep Vein Thrombosis/Pulmonary Embolism Present on Admission: No
[2024-08-10] MEDS: HEPARIN 5,000 UNIT/ML VIAL 5000 UNIT SUBCUT ×2 (08:27→20:25)
--- NOTE | 2024-08-10 09:07 | DI.RAD.S_ITS ---
PROCEDURE: XR ABDOMEN 1V INDICATIONS: abd pain, SBO FU TECHNIQUE: One view of the abdomen acquired. COMPARISON: [facility], CR, XR GASTROGRAFIN CHALLENGE, 08/09/2024, 22:30. FINDINGS: Surgical changes and devices: None. Bowel: Bowel gas pattern is normal. Contrast throughout the colon and rectum. Gaseous distension of the central small bowel Soft tissues: No suspicious abdominal calcifications. Visualized solid organ contours appear normal in size. Bones: No suspicious bony lesions. IMPRESSION: Enteric contrast throughout the colon and rectum Dictated by: Andrew Werner M.D. on 08/10/2024 at 10:21 Approved by: Andrew Werner M.D. on 08/10/2024 at 10:23
[2024-08-10 14:00] VITALS: BP 141/79; PULSE 55; RESP 18; TEMP 36.3; O2SAT 99
[2024-08-10] MEDS: DEXTROSE 5%-0.9% NS 1,000 ML 100 ML IV (14:13)
--- NOTE | 2024-08-10 14:42 | CM.DANOTE ---
DCP Assessment note Pt is a 64yo M here with SBO. PCP TIERA Serrano Payer Henny chris and self pay REGULATOR TESTER reviewed EMR. Per chart, pt lives in [place] with spouse Cassandra and has local son support. Per hospitalist in morning rounds, february dc today vs tomorrow pending improvement throughout the day. Per RN, no obvious CM needs. REGULATOR TESTER entered room and introduced self and role. Pt resting in bed. Confirms indep at baseline. Works at [employer]. Asked for work excuse letter. report spouse will take him home at dc. P: home with family and OP F/u when medically stable. Spouse to transport. work excuse letter pending. CM team will continue to follow as needed TARIK Valverde Discharge Planning/Care Management CM Discharge Assessment Start: 08/10/24 14:41 Freq: Status: Active Protocol: Document 08/10/24 14:41 (Rec: 08/10/24 14:42 [id number]) Discharge Planning Assessment Assigned Chimney Supervisor Brick TARIK Parr DPOA/Assigned Designee Name Cassandra, spouse Contact Information [phone] Advance Directives? No History Provided By Medical Record Prior Living Arrangements House Household Members spouse Type of transporation used prior to Drives own vehicle admit Independent with ADL's Yes Is patient alert and oriented? Yes Barriers to Discharge No Discharge Plan Home Transportation Arrangement family Referrals Initiated None needed Whiteboard Updated in Patient Room with No name and ext. # of Chimney Supervisor Brick Review Status In Process Please Provide Date Initial DC 08/10/24 Assessment Was Performed Next Review Type Continued Stay Review
--- NOTE | 2024-08-10 17:55 | P.CONS_ITS ---
History of Present Illness Consult details Date Patient Seen: 08/10/24 Time Patient Seen: 17:56 Chief complaint: constipated Narrative: 64-year-old man history of prior abdominal surgery admitted with a small-bowel obstruction. Had an appendectomy in childhood. He has had 1 previous episode of small-bowel obstruction which resolved with conservative measures. Few days ago he noted abdominal distention nausea and emesis. He was admitted to the hospital CT scan demonstrates dilated loops of small bowel with a possible transition point in the mid abdomen no free air. He then received a Gastrografin challenge which demonstrates the presence of contrast within the colon. Meds Home Medications and Allergies Home Medications Medication Instructions Recorded Confirmed Type omeprazole 20 mg capsule,delayed 20 mg PO DAILY 08/09/24 08/09/24 History release paroxetine HCl 20 mg tablet 20 mg PO DAILY 08/09/24 08/09/24 History simvastatin 20 mg tablet 20 mg PO ONCE PM 08/09/24 08/09/24 History Allergies Allergy/AdvReac Type Severity Reaction Status Date / Time No Known Drug Allergies Allergy Verified 08/09/24 10:17 Exam Vital Signs (past 8 hours): - 08/10/24 14:00 Temperature 97.4 F L Pulse Rate 55 L Respiratory Rate 18 Blood Pressure 141/79 H Pulse Oximetry 99 Oxygen Flow Rate 0 Oxygen Delivery Method Room Air Oxygen Flow Rate 0 Narrative Exam Narrative: General adult man alert oriented no acute distress Abdomen soft obese nontender Objective Labs 08/10/24 04:00 08/10/24 04:00 Labs: Laboratory Results - last 24 hr 08/10/24 04:00 WBC 6.3 RBC 4.66 Hgb 14.2 Hct 41.4 MCV 88.8 MCH 30.5 MCHC 34.4 RDW 12.9 Plt Count 164 Neut % (Auto) 58.4 Lymph % (Auto) 29.9 [place] % (Auto) 9.1 Eos % (Auto) 2.0 Baso % (Auto) 0.6 Neut # (Auto) 3700 Lymph # (Auto) 1900 [place] # (Auto) 600 Eos # (Auto) 100 Baso # (Auto) 0 Sodium 140 Potassium 3.5 Chloride 110 H Carbon Dioxide 23 BUN 17 Creatinine 0.82 Estimated GFR > 60 BUN/Creatinine Ratio 20.7 Glucose 119 H Calcium 8.8 PFSH Social History household members: spouse Tobacco & Substance Use Smoking Status: Never smoker alcohol intake: current Assessment & Plan Assessment and plan (1) Small bowel obstruction: Status: Acute Assessment & Plan narrative: 64-year-old man history of abdominal surgery admitted with a small-bowel obstruction. Obstruction is currently resolving, there is contrast within the colon on Gastrografin challenge study. He has been tolerant of a liquid diet thus far and his diet may be advanced as tolerated. No surgical intervention indicated. Time-Based Coding :: [TOTAL MINUTES] spent with patient and on the chart (including review of chart, obtaining history, exam, reviewing outside data, placing orders, documenting exam and treatment plan, and counseling patient) on [DATE].
[2024-08-10 20:00] VITALS: BP 141/64; PULSE 59; RESP 20; TEMP 36.4; O2SAT 99
[2024-08-10] MEDS: LORazepam 2 MG/ML INJ 0.5 MG IV (20:25)
[2024-08-11] VITALS: BP 129/75; PULSE 57; RESP 20; TEMP 36.3; O2SAT 98
[2024-08-11 04:46] VITALS: BP 121/68; PULSE 71; RESP 22; TEMP 36.4; O2SAT 98
[2024-08-11 05:00] LABS: Add Manual Diff / Slide Review NO; Basophils Absolute Auto 0 /uL (0-100); Basophils Percent Auto 0.2 % (0-2); Eosinophils Absolute Auto 100 /uL (0-450); Eosinophils Percent Auto 0.9 % (2-4); Hematocrit 41.7 % (41-53); Hemoglobin 14.5 g/dL (13.5-17.5); Lymphocytes Absolute Auto 1400 /uL (1100-4500); Lymphocytes Percent Auto 16.8 % (25-40); Mean Corpuscular HGB Conc 34.8 % (30-36); Mean Corpuscular Hemoglobin 30.7 PG (26-34); Mean Corpuscular Volume 88.4 fL (80-100); Monocytes Absolute Auto 500 /uL (0-900); Monocytes Percent Auto 6.3 % (3-14); Neutrophils Absolute Auto 6100 /uL (1500-7000); Neutrophils Percent Auto 75.8 % (50-75); Platelet Count 160 X10^3/uL (150-400); Red Blood Cell Count 4.71 X10^6/uL (4.5-5.9); Red Cell Distribution Width 12.7 % (11.6-14.8); White Blood Cell Count 8.1 X10^3/uL (4.5-11.0)
[2024-08-11 05:12] LABS: BUN Creatinine Ratio 16.3 (6-22); Blood Urea Nitrogen 13 mg/dL (9-20); Calcium 8.7 mg/dL (8.4-10.2); Carbon Dioxide 24 mmol/L (22-32); Chloride 108 mmol/L (98-107); Estimated Glomerular Filt Rate > 60 mL/min (>60); Glucose 102 mg/dL (80-110); HEMOLYSIS < 15 (0-50); Potassium 3.7 mmol/L (3.4-5.1); Sodium 138 mmol/L (137-145)
[2024-08-11] MEDS: ONDANSETRON 4 MG/2 ML INJ IV ×2 (07:35→13:01)
[2024-08-11] MEDS: DEXTROSE 5%-0.9% NS 1,000 ML 100 ML IV ×2 (09:40→19:42)
[2024-08-11] MEDS: HEPARIN 5,000 UNIT/ML VIAL 5000 UNIT SUBCUT ×2 (09:40→20:20)
--- NOTE | 2024-08-11 11:06 | CM.DPNOTE ---
DCP Note POWERED BRIDGE SPECIALIST reviewed EMR. Per hospitalist in morning rounds, pt may dc today vs tomorrow. Per nursing staff, advancing diet. Hospitalist signed work excuse letter. Placed copy in chart and notified RN to give pt work excuse letter at discharge. POWERED BRIDGE SPECIALIST met with pt in room. Reports feeling back to square one. acknowledges work excuse letter is with nursing staff and will get it from them at discharge. deny other CM/DCP needs. P: home with family and OP F/u when medically stable. Spouse to transport. work excuse letter to be given with dc paperwork. CM team will continue to follow as needed TARIK Valverde
[2024-08-11 11:37] VITALS: BP 145/86; PULSE 78; RESP 16; TEMP 36.5; O2SAT 98
[2024-08-11] MEDS: METOCLOPRAMIDE 10 MG/2 ML INJ 5 MG IV (12:07)
[2024-08-11 12:33] LABS: Magnesium 1.8 mg/dL (1.6-2.3)
--- NOTE | 2024-08-11 17:01 | P.PN_ITS ---
Subjective Subjective Interval history: 64 yo male w/HLD, anxiety, TAMEKA and remote appy and prior SBO ?who was admitted 2 days ago w/SBO.? He underwent a gastrografin challenge and had contrast successfully pass to the colon.? He has tolerated a clear liquid diet. He was advanced to a regular diet yesterday by General surgery. Patient reports he is feeling poorly again this morning. He notes that he ate meatloaf, mashed potatoes and pudding last night. He notes he had a lot of bowel gurgling yesterday but after eating last night's meal it seems to have slowed back down. He is feeling nauseated and uncomfortable. He states when he had his bowel obstruction years ago he required an NG-tube. He did pass 1 liquid bowel movement this morning and 1 yesterday. He states he is passing some gas but much less than normal. Exam Vital Signs (past 8 hours): - 08/11/24 11:37 Temperature 97.7 F Pulse Rate 78 Respiratory Rate 16 Blood Pressure 145/86 H Pulse Oximetry 98 Oxygen Flow Rate 0 Oxygen Delivery Method Room Air Oxygen Flow Rate 0 Narrative Exam Narrative: GEN: Middle-aged male, Alert and oriented x 3, NAD HEENT:NC, Face symmetric CHEST: Respiratory excursions symmetric, CTAB CV: RRR, no M/R/G ABD: Soft, obese, moderately diffusely tender, diminished bowel tones throughout, body habitus limits exam EXTR: warm, well perfused, no C/C/E SKIN: warm and dry, no rash NEURO: Alert and oriented x 3, nonfocal Objective Labs 08/11/24 04:30 08/11/24 04:30 Labs: Laboratory Results - last 24 hr 08/11/24 04:30 WBC 8.1 RBC 4.71 Hgb 14.5 Hct 41.7 MCV 88.4 MCH 30.7 MCHC 34.8 RDW 12.7 Plt Count 160 Neut % (Auto) 75.8 H Lymph % (Auto) 16.8 L [place] % (Auto) 6.3 Eos % (Auto) 0.9 L Baso % (Auto) 0.2 Neut # (Auto) 6100 Lymph # (Auto) 1400 [place] # (Auto) 500 Eos # (Auto) 100 Baso # (Auto) 0 Sodium 138 Potassium 3.7 Chloride 108 H Carbon Dioxide 24 BUN 13 Creatinine 0.80 Estimated GFR > 60 BUN/Creatinine Ratio 16.3 Glucose 102 Calcium 8.7 Magnesium 1.8 PFSH Social History household members: spouse Smoking Status: Never smoker alcohol intake: current Assessment & Plan Assessment & Plan narrative: 1. Partial small bowel obstruction Gastrografin challenge was done with contrast visible into the colon. Is having increased symptoms today after eating a large regular diet last night. We will resume bowel rest. Will place on sips and chips diet. Will add Reglan for antiemetic. Continue Zofran as needed as well. 2. Class 3 obesity BMI is 39.1. He is at high risk for morbidity, particularly while hospitalized. Will require close monitoring. 3. Obstructive sleep apnea He does use CPAP at home. This has been held here due to concerns about risk for emesis and aspiration 4. Hyperlipidemia Continue simvastatin 5. Anxiety Remains on paroxetine an outpatient basis. Also has as needed lorazepam. 6. GERD Continue PPI Code status Full Prophylaxis On heparin Disposition Pending resolution of bowel obstruction I did speak with the patient's by telephone. She is quite anxious and stressed. She states she has stage IV liver cancer and is quite concerned about the cost of his hospitalization. We did review criteria for discharge. Time-Based Coding :: [TOTAL MINUTES] spent with patient and on the chart (including review of chart, obtaining history, exam, reviewing outside data, placing orders, documenting exam and treatment plan, and counseling patient) on [DATE]. Quality VTE Deep Vein Thrombosis/Pulmonary Embolism Present on Admission: No
[2024-08-11 18:00] VITALS: BP 137/59; PULSE 80; RESP 16; TEMP 37.7; O2SAT 98
[2024-08-11 20:20] VITALS: TEMP 38.6
[2024-08-11] MEDS: ACETAMINOPHEN 325 MG TABLET 975 MG PO (20:20)
[2024-08-11] MEDS: SODIUM CHLORIDE 0.9% FLUSH 10 ML IV (20:21)
[2024-08-11] MEDS: PANTOPRAZOLE DR 20 MG TABLET PO (20:22)
[2024-08-11 21:19] VITALS: TEMP 37.4
[2024-08-12] VITALS: BP 108/43; PULSE 53; RESP 20; TEMP 36.2; O2SAT 98
[2024-08-12 05:04] LABS: Add Manual Diff / Slide Review NO; Basophils Absolute Auto 0 /uL (0-100); Basophils Percent Auto 0.2 % (0-2); Eosinophils Absolute Auto 100 /uL (0-450); Hematocrit 38.2 % (41-53); Hemoglobin 13.3 g/dL (13.5-17.5); Lymphocytes Absolute Auto 1800 /uL (1100-4500); Lymphocytes Percent Auto 25.8 % (25-40); Mean Corpuscular HGB Conc 34.8 % (30-36); Mean Corpuscular Volume 88.9 fL (80-100); Monocytes Absolute Auto 600 /uL (0-900); Monocytes Percent Auto 8.9 % (3-14); Neutrophils Absolute Auto 4500 /uL (1500-7000); Neutrophils Percent Auto 64.1 % (50-75); Platelet Count 153 X10^3/uL (150-400); White Blood Cell Count 7.1 X10^3/uL (4.5-11.0)
[2024-08-12 05:46] LABS: Blood Urea Nitrogen 15 mg/dL (9-20); Calcium 8.4 mg/dL (8.4-10.2); Carbon Dioxide 24 mmol/L (22-32); Chloride 108 mmol/L (98-107); Estimated Glomerular Filt Rate > 60 mL/min (>60); Glucose 119 mg/dL (80-110); HEMOLYSIS < 15 (0-50); Magnesium 1.8 mg/dL (1.6-2.3); Potassium 3.3 mmol/L (3.4-5.1); Sodium 137 mmol/L (137-145)
[2024-08-12 06:00] VITALS: BP 119/52; PULSE 59; RESP 22; TEMP 36.6; O2SAT 99
[2024-08-12] MEDS: PANTOPRAZOLE DR 20 MG TABLET PO (06:17)
[2024-08-12 08:00] VITALS: BP 139/69; PULSE 58; RESP 15; TEMP 36.5; O2SAT 99
[2024-08-12] MEDS: HEPARIN 5,000 UNIT/ML VIAL 5000 UNIT SUBCUT (08:08)
[2024-08-12] MEDS: POTASSIUM CHLORIDE IN WATER 10 MEQ/100 ML PIGGYBACK 100 MEQ IV ×4 (08:08→12:51)
--- NOTE | 2024-08-12 11:10 | CM.DPNOTE ---
DCP Note STERILIZER OPERATOR reviewed EMR. Per provider in morning rounds, pt vomited x6 yesterday, but is doing better on clears today. Pending how diet advances, may dc later this evening vs tomorrow. Per provider, pt spouse has advanced cancer and it's causing stressors at home. STERILIZER OPERATOR met with pt briefly in room. Pt reports feeling better today. STERILIZER OPERATOR gave pt copy of senior resources booklet for resources in [place]. Appreciative, will look to see if there's something that could assist him or spouse at home. P: home with spouse support when medically stable, DARLINE 08/12 vs 08/13 pending diet. CM team will continue to follow as needed TARIK Valverde
--- NOTE | 2024-08-12 14:50 | P.PN_ITS ---
Subjective Subjective Interval history: 64 yo male w/HLD, anxiety, TAMEKA and remote appy and prior SBO ?who was admitted 2 days ago w/SBO.? He underwent a gastrografin challenge and had contrast successfully pass to the colon.? He has tolerated a clear liquid diet. He was advanced to a regular diet on August 10 by General surgery. Unfortunately, he ate a fairly large meal and tolerated it poorly. Yesterday morning he had increasing abdominal discomfort and nausea. He resumed bowel rest, ultimately had nausea and vomiting. He was given Reglan and Zofran with good results. Today he reports he is feeling significantly better. No further abdominal pain or nausea. He also had a bowel movement which he states appeared more normal today. He would like to try to advance his diet. Exam Vital Signs (past 8 hours): - 08/12/24 08:00 Temperature 97.7 F Pulse Rate 58 L Respiratory Rate 15 Blood Pressure 139/69 Pulse Oximetry 99 Oxygen Flow Rate 0 Oxygen Delivery Method Room Air Oxygen Flow Rate 0 Narrative Exam Narrative: GEN: Middle-aged male, Alert and oriented x 3, NAD, smiling and interactive today HEENT:NC, Face symmetric CHEST: Respiratory excursions symmetric, CTAB CV: RRR, no M/R/G ABD: Soft, obese, nontender, nondistended, improved bowel tones today, body habitus limits exam EXTR: warm, well perfused, no C/C/E SKIN: warm and dry, no rash NEURO: Alert and oriented x 3, nonfocal Objective Labs 08/12/24 04:35 08/12/24 04:35 Labs: Laboratory Results - last 24 hr 08/12/24 04:35 WBC 7.1 RBC 4.30 L Hgb 13.3 L Hct 38.2 L MCV 88.9 MCH 31.0 MCHC 34.8 RDW 13.0 Plt Count 153 Neut % (Auto) 64.1 Lymph % (Auto) 25.8 [place] % (Auto) 8.9 Eos % (Auto) 1.0 L Baso % (Auto) 0.2 Neut # (Auto) 4500 Lymph # (Auto) 1800 [place] # (Auto) 600 Eos # (Auto) 100 Baso # (Auto) 0 Sodium 137 Potassium 3.3 L Chloride 108 H Carbon Dioxide 24 BUN 15 Creatinine 0.88 Estimated GFR > 60 BUN/Creatinine Ratio 17.0 Glucose 119 H Calcium 8.4 Magnesium 1.8 PFSH Social History household members: spouse Smoking Status: Never smoker alcohol intake: current Assessment & Plan Assessment & Plan narrative: 1. Partial small bowel obstruction Gastrografin challenge was done with contrast visible into the colon. He is significantly improved today after restarting bowel rest yesterday. Will advance to clear liquid diet this morning. If he tolerates that well, will advance to full liquid diet this afternoon. If that is well tolerated, will consider discharge this evening. If not, he will likely discharge tomorrow. 2. Class 3 obesity BMI is 39.1. He is at high risk for morbidity, particularly while hospitalized. I did discuss with him the importance of avoiding heavy fatty foods, particularly fast food during his recovery. 3. Obstructive sleep apnea He does use CPAP at home. 4. Hyperlipidemia Continue simvastatin 5. Anxiety Remains on paroxetine an outpatient basis. This will be restarted today. 6. GERD Continue PPI Code status Full Prophylaxis On heparin Disposition As above, possible discharge later today if he tolerates advanced diet Clarification: Yesterday, it was miscommunicated that the patient's spouse has stage IV liver cancer. Patient states she is stage IV liver disease. Upon further clarification it is in fact that she has CKD 4. This came up as she would be his ride home if he is able to discharge later in the day. Time-Based Coding :: [TOTAL MINUTES] spent with patient and on the chart (including review of chart, obtaining history, exam, reviewing outside data, placing orders, documenting exam and treatment plan, and counseling patient) on [DATE]. Quality VTE Deep Vein Thrombosis/Pulmonary Embolism Present on Admission: No
--- NOTE | 2024-08-12 18:12 | PC.NURSE ---
Discharge Note Patient A&O, VSS, RA, no complaints of pain/discomfort. Patient agreeable to discharge plan, all questions/concerns addressed. Patient able to dress self and pack all belongings. Patient walked down to [facility].
--- NOTE | 2024-08-12 19:21 | PM.DS.1 ---
History of Present Illness History of Present Illness Chief complaint: constipated Narrative: Per history and physical: The patient is a 64-year-old who presents with abdominal pain. He has a history of appendectomy and 1 episode of previous bowel obstruction. Now presents with distention and discomfort. He was seen in the ED on August 07 and sent home. He now Re presents with ongoing pain. He does have some passage of liquid stool. He denies any nausea, vomiting, or belching. A repeat CT in the ED is consistent with a bowel obstruction. He denies fevers, chills, or blood per rectum. ED course: Discussed with surgery, they recommended medical management. NPO status and IV fluids as well as analgesics. CT scan was consistent with bowel obstruction. He was not been able to eat for about 2 days now. He was had some hiccups and some intermittent vomiting. He denies any blood per rectum or hematemesis. He had a very small bowel movement this morning and has passed gas only once. The pain is primarily epigastric and mostly constant. The pain gets worse with standing and is alleviated with lying flat. Discharge Providers Provider Date of admission: 08/09/24 15:02 Discharge Date: 08/12/24 Primary care physician: Maggie MOTT Provider Consults: General surgery Discharge provider: Damaris Felton MD Summary Hospital Course Discharge Diagnosis: 1. Partial small bowel obstruction, resolved 2. Class 3 obesity 3. Obstructive sleep apnea 4. Hyperlipidemia 5. Anxiety 6. GERD Hospital Course: 64 yo male w/HLD, anxiety, TAMEKA and remote appy and prior SBO ?who was admitted 2 days ago w/SBO.? He underwent a gastrografin challenge and had contrast successfully pass to the colon.? He has tolerated a clear liquid diet. He was advanced to a regular diet on August 10 by General surgery. Unfortunately, he ate a fairly large meal and tolerated it poorly. Yesterday morning he had increasing abdominal discomfort and nausea. He resumed bowel rest, ultimately had nausea and vomiting. He was given Zofran with good results. On the morning of discharge, he was feeling significantly better. He had no further nausea or vomiting. He was advanced to a clear liquid diet and tolerated it well. He subsequently advanced to a full liquid diet with no residual symptoms. He subsequently discharged home in stable condition. Status at Discharge Cognitive/behavioral status at discharge: at baseline, oriented Functional status at discharge: independent ambulation Overall status at discharge: patient is progressing back to baseline Time Spent with Patient Time spent: Greater than 30 minutes Exam Vital Signs (past 8 hours): Oxygen Delivery Method Room Air Oxygen Flow Rate 0 Objective Labs 08/12/24 04:35 08/12/24 04:35 Labs: Laboratory Results - last 24 hr 08/12/24 04:35 WBC 7.1 RBC 4.30 L Hgb 13.3 L Hct 38.2 L MCV 88.9 MCH 31.0 MCHC 34.8 RDW 13.0 Plt Count 153 Neut % (Auto) 64.1 Lymph % (Auto) 25.8 [place] % (Auto) 8.9 Eos % (Auto) 1.0 L Baso % (Auto) 0.2 Neut # (Auto) 4500 Lymph # (Auto) 1800 [place] # (Auto) 600 Eos # (Auto) 100 Baso # (Auto) 0 Sodium 137 Potassium 3.3 L Chloride 108 H Carbon Dioxide 24 BUN 15 Creatinine 0.88 Estimated GFR > 60 BUN/Creatinine Ratio 17.0 Glucose 119 H Calcium 8.4 Magnesium 1.8 PFSH Social History household members: spouse Smoking Status: Never smoker alcohol intake: current Discharge Plan Discharge Plan Patient Disposition: Home Provider Discharge Comment: 1) You were admitted with a partial small bowel obstruction 2) Continue a full liquid diet (cream of wheat, soup, etc) today and tomorrow 3) If you tolerate that well, advance to a regular, low fat diet on Tuesday 4) Eat small, frequent meals rather than large meals until your bowel habits return to normal 5) If you develop nausea with advancing your diet, resume bowel rest or clear liquids until your symptoms improve, then slowly advance your diet again 6) Return to the ED for: inability to hold down food/fluids, fevers, constipation, black/tarry stools, vomiting Discharge orders & Medications Prescriptions: New ondansetron 4 mg tablet,disintegrating 4 mg PO Q4H PRN (Reason: nausea and vomiting) Qty: 20 0RF Continued paroxetine HCl 20 mg tablet 20 mg PO DAILY simvastatin 20 mg tablet 20 mg PO ONCE PM omeprazole 20 mg capsule,delayed release(DR/EC) 20 mg PO DAILY Follow up/Referrals: ProviderMaggie [Primary Care Provider] - Diet/Activity/Treatments Diet: Diet as Tolerated Diet comment: full liquid diet tonight& tomorrow, then low fat regular diet as tolerated Activity: as tolerated Oxygen: N/A Visit Report/Discharge Packet Instructions: DI for Small Bowel Obstruction, Full Liquid Diet Stand Alone Forms: Patient Portal/API, Stroke Signs & Symptoms Discharge Data Primary Care Provider: Maggie Johnson Attending Provider: Errol Cunningham Admit Date/Time: 08/09/24 15:02 Quality VTE Deep Vein Thrombosis/Pulmonary Embolism Present on Admission: No
== END 2024-08-12 18:00 | disposition home or self-care (01) | DRG 390 ==
LOC: ED 15:02 → AC 15:02
PROVIDERS: Family Medicine; Admitting Provider Hospitalist; Emergency Provider Emergency Medicine; Referring Provider Emergency Medicine; Visit Provider Hospitalist
DX: K56.600 Partial intestinal obstruction, unspecified as to cause (principal); E78.5 Hyperlipidemia, unspecified; F41.9 Anxiety disorder, unspecified; G47.33 Obstructive sleep apnea (adult) (pediatric); E66.813 Obesity, class 3; K21.9 Gastro-esophageal reflux disease without esophagitis; Z68.39 Body mass index [BMI] 39.0-39.9, adult
CPT/HCPCS: 36415; 74018; 74022; 74177; 80048; 80053; 81003; 81015; 83735; 85025; 87086; 99284; 99285; G0378; J1644; J2060; J2405; J2765; Q9967